=== PATIENT | male | born 1975 | race Hispanic/Latino ===

== ENCOUNTER 2017-10-29 19:25 | Emergency (ER) | payer BC | END 2017-10-29 20:22 | disposition home or self-care (01) | LOC: EDH 19:25 | DX: J06.9 Acute upper respiratory infection, unspecified (principal) | CPT/HCPCS: 99281 ==

== ENCOUNTER 2019-01-24 05:14 | Emergency (ER) | payer BC ==
[2019-01-24] MEDS ORDERED: TETANUS/DIPHTHERIA TOXOID [ADULT] 0.5 ML VIAL IM ONE (05:46)
[2019-01-24] MEDS ORDERED: LIDOCAINE HCL 2% 20ML ONE (06:18)
[2019-01-24] MEDS ORDERED: LIDOCAINE HCL 1% 20 ML VIAL ONE (06:24)
== END 2019-01-24 07:14 | disposition home or self-care (01) ==
LOC: EDH 05:14
DX: S01.01XA Laceration without foreign body of scalp, initial encounter (principal); W18.39XA Other fall on same level, initial encounter; Y93.89 Activity, other specified; Y92.830 Public park as the place of occurrence of the external cause; Y99.8 Other external cause status
CPT/HCPCS: 12032; 70450; 90471; 90714; J3490

== ENCOUNTER 2023-07-28 08:18 | Emergency (ER) | payer BC ==
[~2023-07-28] VITALS: Ht 182.9 cm; Wt 117.9 kg
[2023-07-28 08:47] LABS: BASOPHILS # (AUTO) 0.05 K/uL (0.00-0.20); BASOPHILS % (AUTO) 0.5 % (0.0-5.0); EOSINOPHILS # (AUTO) 0.04 K/uL (0.00-0.70); EOSINOPHILS % (AUTO) 0.4 % (0.0-8.0); HEMATOCRIT 47.6 % (42-54); IMMATURE GRANULOCYTE ABSOLUTE 0.06 K/uL (0-1); LYMPHOCYTES # (AUTO) 2.1 K/uL (1.0-4.8); LYMPHOCYTES % (AUTO) 22.3 % (21.0-51.0); MEAN CORPUSCULAR HEMOGLOBIN 31.5 pg (27.0-33.0); MEAN CORPUSCULAR HGB CONC 35.1 g/dL (32.0-36.0); MEAN CORPUSCULAR VOLUME 89.8 fL (79-99); MONOCYTES # (AUTO) 0.3 K/uL (0.1-1.0); MONOCYTES % (AUTO) 3.6 % (3.0-13.0); NEUTROPHILS # (AUTO) 6.9 K/uL (1.8-7.7); NEUTROPHILS % (AUTO) 72.6 % (40.0-77.0); PLATELET COUNT (AUTO) 235 K/uL (130-400); RED CELL DISTRIBUTION WIDTH 12.9 % (11.0-15.5); WHITE BLOOD COUNT (AUTO) 9.5 K/uL (4.8-10.8)
[2023-07-28] MEDS ORDERED: LACTATED RINGERS 1000ML IV ONE (09:00)
[2023-07-28] MEDS ORDERED: MORPHINE 4 MG SYG IVP ONE (09:00)
[2023-07-28] MEDS ORDERED: ONDANSETRON 4MG INJ IVP ONE (09:00)
[2023-07-28 09:03] LABS: APPEARANCE,URINE CLEAR (CLEAR); BILIRUBIN,TOTAL 0.4 mg/dL (0.2-1.0); BILIRUBIN,URINE NEGATIVE (NEGATIVE); COLOR,URINE LIGHT-YELLOW (YELLOW); CREATININE 1.4 mg/dL (0.5-1.5); GLUCOSE, URINE (UA) NEGATIVE (NEGATIVE); KETONES,URINE NEGATIVE (NEGATIVE); LEUKOCYTE ESTERASE ,URINE NEGATIVE Leu/uL (NEGATIVE); NITRATE,URINE NEGATIVE (NEGATIVE); OCCULT BLOOD,URINE LARGE (NEGATIVE); POTASSIUM 4.2 mmol/L (3.5-5.1); PROTEIN,URINE NEGATIVE (NEGATIVE); TOTAL PROTEIN, SERUM 7.6 g/dL (6.0-8.3); UROBILINOGEN,URINE 0.2 mg/dL (0.2-1.0)
[2023-07-28 09:06] LABS: ADD UA MICROSCOPIC YES
[2023-07-28 09:18] LABS: BACTERIA,URINE RARE /HPF (None Seen); MUCUS,URINE RARE LPF (None Seen); RBC,URINE 51-100 /HPF (0-1); SQUAMOUS EPITHELIAL CELL,UR RARE /HPF (0-2)
[2023-07-28 10:58] VITALS: BP 127/74; PULSE 80; RESP 17; O2SAT 98
[2023-07-28] MEDS ORDERED: TAMS-1 PO (12:55)
[2023-07-28] MEDS ORDERED: HYDR-4060 PO (12:55)
[2023-07-28] MEDS ORDERED: IBUP-2070 PO (12:55)
[2023-07-28] MEDS ORDERED: KETOROLAC 30MG VIAL (30MG/ML) IVP ONE (13:00)
[2023-07-28] MEDS ORDERED: TAMSULOSIN HCL 0.4 MG CAP.ER.24H PO ONE (13:00)
== END 2023-07-28 13:24 | disposition home or self-care (01) ==
LOC: EDH 08:18
DX: N13.2 Hydronephrosis with renal and ureteral calculous obstruction (principal); Z90.49 Acquired absence of other specified parts of digestive tract
CPT/HCPCS: 99284; 74176; 96374; 96375; 96361; 80053; 85025; 81001; 36415; J2405; J2270; J1885

== ENCOUNTER 2023-11-28 01:58 | Emergency (ER) | payer BC ==
[~2023-11-28] VITALS: Ht 182.9 cm; Wt 117.0 kg
[~2023-11-28 01:58] MED LIST: HYDR-4060 PO; IBUP-2070 PO; TAMS-1 PO
[2023-11-28] MEDS ORDERED: ACET-2079 PO (02:31)
[2023-11-28] MEDS: MORPHINE 8MG VIAL IM ONE (02:51)
[2023-11-28] MEDS: MORPHINE 4 MG SYG ONE (02:52)
[2023-11-28] MEDS: SOLU-MEDROL 125MG VIAL IM ONE (02:59)
[2023-11-28 03:33] VITALS: BP 115/75; PULSE 65; RESP 17; O2SAT 97
== END 2023-11-28 03:38 | disposition home or self-care (01) ==
LOC: EDH 01:58
DX: M10.9 Gout, unspecified (principal); M79.675 Pain in left toe(s); Z79.899 Other long term (current) drug therapy; Z98.890 Other specified postprocedural states
CPT/HCPCS: 99284; 96372 ×2; J2930; J2270

== ENCOUNTER 2024-02-21 05:46 | Emergency (ER) | payer BC ==
[~2024-02-21] VITALS: Ht 182.9 cm; Wt 117.9 kg
[~2024-02-21 05:46] MED LIST changes: +ACET-2079 PO
[2024-02-21] MEDS: KETOROLAC 60 MG VIAL (30MG/ML) IM ONE (08:11)
[2024-02-21] MEDS: DEXAMETHASONE SOD PHOSPHATE 4 MG/ML 1ML VIAL IM ONE (08:11)
[2024-02-21] MEDS ORDERED: PRED20TA3 PO (08:12)
[2024-02-21] MEDS ORDERED: IBUP-2070 PO (08:12)
[2024-02-21] MEDS: MORPHINE 4 MG SYG IM ONE (09:27)
[2024-02-21 11:50] VITALS: BP 136/80; PULSE 75; RESP 17; O2SAT 98
== END 2024-02-21 11:51 | disposition home or self-care (01) ==
LOC: EDH 05:46
DX: M10.9 Gout, unspecified (principal); M79.675 Pain in left toe(s); Z79.899 Other long term (current) drug therapy; Z98.890 Other specified postprocedural states
CPT/HCPCS: 99284; 84550; 36415; 73660; 96372 ×3; J1100; J2270; J1885